=== PATIENT | female | born 1990 ===

== ENCOUNTER 2024-02-05 09:53 | Emergency (ER) | payer SELFPAY ==
--- NOTE | 2024-02-05 09:54 | ED.GENADULT ---
HPI - General Adult General Chief complaint: Upper Respiratory Infection Stated complaint: vertigo/breathing Time Seen by Provider: 02/05/24 10:07 Source: patient and RN notes reviewed Mode of arrival: ambulatory Limitations: no limitations History of Present Illness HPI narrative: 34-year-old female presents to the [facility] with complaints of dizziness and nausea for 1 month. Patient was seen another urgent care, prescribed meclizine. cough, runny nose and fatigue for 1 week Primatine mist 1 times last night. Denies - Reports has IUD Patient is requesting a lab work and anxiety medication. Originally stated she does not have a primary. Then reports she has seen a primary at [facility]. Reports that they would not prescribe medications until she had lab work. Labs were ordered in May 2023. Has not had lab work done. patient is tearful. Patient denies SI or HI. Offer to transfer to ER for a full evaluation, patient declined any transfer at this time. States that she will go get her blood work done at [facility] and follow-up with Related Data Home Medications Medication Instructions Recorded Confirmed copper 380 square mm intrauterine See Rx Instructions .Route .COMPLEX 02/05/24 02/05/24 device (ParaGard T 380A) Allergies Allergy/AdvReac Type Severity Reaction Status Date / Time No Known Drug Allergies Allergy Mild Other Verified 02/05/24 09:56 Review of Systems Review of Systems: All systems reviewed & are unremarkable except as noted in HPI and below Constitutional: Constitutional: Reports as per HPI and Reports body ache(s) Eyes: Eyes: Reports no additional eye complaints ENT: Reports as per HPI and Reports dizziness (Intermittent) Cardiovascular: Cardiovascular: Reports no additional cardiovascular complaints, Denies chest pain and Denies dyspnea Respiratory: Respiratory: Reports no additional respiratory complaints, Denies chest congestion, Denies cough and Denies dyspnea Gastrointestinal: Gastrointestinal: Reports no additional gastrointestinal complaints, Denies abdominal pain, Denies nausea and Denies vomiting Musculoskeletal: Musculoskeletal: Reports no additional musculoskeletal complaints Integumentary/Breasts: Skin/Breast: Reports system reviewed and no additional complaints, except as docu Neurologic: Reports system reviewed and no additional complaints, except as documented Psychiatric: Psychiatric: Reports no additional psychiatric complaints Allergic/Immunologic: Allergic/Immunologic: Reports no additional allergic/immunologic complaints PMFSH Comments At the time of my signature, I reviewed and agree with the nursing past medical, surgical, social, and family history. There is no relevant family history pertinent to the patient complaint. Exam Const: General: cooperative, healthy appearing, comfortable, no acute distress, well developed, alert, well groomed and well nourished Nutritional Appearance: well nourished Orientation/consciousness: patient oriented x3 Limitations: no limitations HENMT: Head: normal to inspection Ears: hearing grossly normal bilaterally, external ears normal, TM normal on the left and TM abnormal bulging on the right and with fluid behind the TM on the right; not erythematous Face/Nose/Sinus: Normal external nose present, Normal nares present, Normal nasal mucous membranes and turbinates present, normal facial exam and face symmetric Face and sinus: normal facial exam and face symmetric Throat: posterior oropharynx normal, tonsils normal, uvula midline and no uvular edema Eyes: General: appearance normal, both eyes and all related structures Alignment and Position: alignment normal Periorbital: periorbital findings normal Pupils: Equal, round and reactive pupils present EOM: EOMs intact bilaterally Neck: Neck: normal visual inspection, full ROM, no lymphadenopathy and no meningeal signs Chest: Chest palpation & inspection
[2024-02-05 10:01] VITALS: BP 125/78; PULSE 61; RESP 18; TEMP 36.9; O2SAT 100
== END 2024-02-05 10:37 | disposition home or self-care (01) ==
PROVIDERS: Emergency Provider Nurse Practitioner
DX: F41.9 Anxiety disorder, unspecified (principal); H65.01 Acute serous otitis media, right ear; Z86.16 Personal history of COVID-19
CPT/HCPCS: 99213; G0463